=== PATIENT | female | born 1990 | race Caucasian/White ===

== ENCOUNTER 2017-03-07 15:23 | Outpatient (CLI) | payer MEDICAID, OTHER ==
[2017-03-08] MEDS ORDERED: morphine SULFATE/PF (10 MG/10 ML) INJ (14:42)
[2017-03-08] MEDS ORDERED: PHENYLephrine (100 MCG/ML) 5ML SYG (14:42)
[2017-03-08] MEDS ORDERED: METOCLOPRAMIDE 10 MG INJ (14:42)
[2017-03-08] MEDS ORDERED: FENTAnyl 50 MCG/ML VIAL (14:42)
[2017-03-08] MEDS ORDERED: OXYTOCIN 10 UNIT INJ (14:42)
== END 2017-03-07 18:05 | disposition home or self-care (01) ==
LOC: OBT 15:23 → L-D 15:25 → OBT 18:05
DX: O36.63X0 Maternal care for excessive fetal growth, third trimester, not applicable or unspecified (principal); Z3A.40 40 weeks gestation of pregnancy
CPT/HCPCS: 76815; 76818

== ENCOUNTER 2017-03-08 10:16 | Inpatient (IN) | payer MEDICAID ==
[~2017-03-08 10:16] MED LIST: EPHEDrine SULFATE 50 MG/5 ML SYG; FENTAnyl 50 MCG/ML VIAL; OXYTOCIN 10 UNIT INJ; morphine SULFATE/PF (10 MG/10 ML) INJ
[2017-03-08] MEDS ORDERED: LACTATED RINGER'S 1,000 ML IV (11:11)
[2017-03-08 11:19] LABS: ADD MAN DIFF? NO
[2017-03-08 11:21] LABS: WHITE BLOOD COUNT 4.8 10^3/ul (4.8-10.8)
[2017-03-08 11:21] LABS: BASOPHILS % 0.2 % (0.0-2.0); EOSINOPHILS # 0.1 10^3/ul (0.0-0.5); EOSINOPHILS % 1.5 % (0.0-7.0); HEMATOCRIT 37.1 % (37.0-47.0); HEMOGLOBIN 12.1 g/dl (12.0-16.0); LYMPHOCYTES # 1.5 10^3/ul (0.8-2.9); LYMPHOCYTES % 31.2 % (15.0-51.0); MEAN CORPUSCULAR HGB CONC 32.6 g/dl (32.0-37.0); MEAN CORPUSCULAR VOLUME 95.1 fl (82.0-101.0); MEAN PLATELET VOLUME 12.1 fl (7.4-10.4); MONOCYTE # 0.5 10^3/ul (0.3-0.9); MONOCYTES % 11.3 % (0.0-11.0); NEUTROPHIL # 2.6 10^3/ul (1.6-7.5); NEUTROPHILS % 55.4 % (39.0-77.0); PLATELET COUNT 186 10^3/UL (140-415); RED CELL DISTRIBUTION WIDTH 13.2 % (11.5-14.5)
[2017-03-08] MEDS ORDERED: MISOPROSTOL 200 MCG TAB PR ×2 (11:30→18:30)
[2017-03-08] MEDS ORDERED: CEFAZOLIN 2 GM/50 ML (PMX) 50 ML IV ×2 (11:30→18:30)
[2017-03-08] MEDS ORDERED: CARBOPROST 250 MCG INJ IM ×2 (11:30→18:30)
[2017-03-08] MEDS ORDERED: METHYLERGONOVINE 0.2 MG INJ IM ×2 (11:30→18:30)
[2017-03-08 11:54] LABS: INR 0.82; PARTIAL THROMBOPLASTIN TIME 24.8 Sec (25.0-35.0); PROTIME 11.4 Sec (11.9-14.9); PT RATIO 0.9
[2017-03-08 12:48] LABS: HEPATITIS B SURFACE ANTIGEN NEGATIVE (NEGATIVE)
[2017-03-08] MEDS: CITRIC ACID/SODIUM CITRATE 15 ML CUP PO (14:08)
[2017-03-08] MEDS: ONDANSETRON 4 MG INJ IV ×2 (14:08→20:17)
[2017-03-08 15:30] LABS: RAPID PLASMA REAGIN NONREACTIVE (NR)
[2017-03-08] MEDS ORDERED: NALBUPHINE HCL (10 MG/1 ML) INJ IV (16:00)
[2017-03-08] MEDS ORDERED: morphine 2 MG INJ IV (16:00)
[2017-03-08] MEDS ORDERED: OXYCODONE/ACETAMINOPHEN (5/325) TAB PO ×2 (16:00)
[2017-03-08] MEDS ORDERED: HYDROmorphONE (0.2 MG/ML) 10ML SYG IV ×3 (16:00)
[2017-03-08] MEDS ORDERED: LABETALOL HCL 20MG INJ IV (16:00)
[2017-03-08] MEDS ORDERED: MEPERIDINE 25 MG INJ IV (16:00)
[2017-03-08] MEDS ORDERED: IPRATROPIUM (NEB) 0.5 MG/2.5 ML AMP HHN (16:00)
[2017-03-08] MEDS ORDERED: EPHEDrine SULFATE 50 MG/5 ML SYG IV (16:00)
[2017-03-08] MEDS ORDERED: NALOXONE (0.4 MG/ML) INJ IV (16:00)
[2017-03-08] MEDS ORDERED: ONDANSETRON 4 MG INJ IV (16:00)
[2017-03-08] MEDS ORDERED: FENTAnyl 50 MCG/ML VIAL IV ×3 (16:00)
[2017-03-08] MEDS ORDERED: ALBUTEROL 0.083% (NEB) 2.5 MG/3 ML AMP HHN (16:00)
[2017-03-08] MEDS ORDERED: TRIMETHOBENZAMIDE 100 MG/ML VIAL IM ×2 (16:00)
[2017-03-08] MEDS ORDERED: DIPHENHYDRAMINE 50 MG INJ IV ×2 (16:00)
[2017-03-08] MEDS ORDERED: hydrALAzine 20 MG INJ IV (16:00)
[2017-03-08] MEDS: OXYTOCIN 30 UNITS/LR 500 ML IV (16:07)
[2017-03-08] MEDS: LACTATED RINGER'S 1,000 ML IV ×2 (18:25→20:16)
[2017-03-08] MEDS ORDERED: HYDROCODONE/APAP (5/325) TAB PO (18:30)
[2017-03-08] MEDS ORDERED: NA PHOSPHATE/BIPHOS 133 ML ENEMA PR (18:30)
[2017-03-08] MEDS ORDERED: OXYTOCIN 30 UNITS/LR 500 ML IV (18:30)
[2017-03-08] MEDS: KETOROLAC 30 MG INJ IV (18:40)
[2017-03-08] MEDS: morphine 4 MG/ML VIAL IV (20:34)
[2017-03-08] MEDS: SENNA/DOCUSATE NA (8.6MG/50MG) TAB PO (21:00)
[2017-03-08] MEDS: CEFAZOLIN 2 GM/50 ML (PMX) 50 ML IVPB (22:21)
[2017-03-09] MEDS: CLINDAMYCIN 300 MG CAP PO ×4 (01:08→18:03)
[2017-03-09] MEDS: LACTATED RINGER'S 1,000 ML IV ×2 (01:14→12:00)
[2017-03-09] MEDS: CEFAZOLIN 2 GM/50 ML (PMX) 50 ML IVPB ×2 (05:48→13:33)
[2017-03-09] MEDS: morphine 4 MG/ML VIAL IV (05:54)
[2017-03-09 08:22] LABS: ADD MAN DIFF? NO
[2017-03-09] MEDS: KETOROLAC 30 MG INJ IV (08:29)
[2017-03-09] MEDS: SENNA/DOCUSATE NA (8.6MG/50MG) TAB PO ×2 (08:29→21:02)
[2017-03-09 08:31] LABS: WHITE BLOOD COUNT 8.9 10^3/ul (4.8-10.8)
[2017-03-09 08:31] LABS: BASOPHILS % 0.1 % (0.0-2.0); EOSINOPHILS % 0.3 % (0.0-7.0); HEMATOCRIT 27.7 % (37.0-47.0); HEMOGLOBIN 9.3 g/dl (12.0-16.0); LYMPHOCYTES # 1.1 10^3/ul (0.8-2.9); LYMPHOCYTES % 12.7 % (15.0-51.0); MEAN CORPUSCULAR HGB CONC 33.6 g/dl (32.0-37.0); MEAN CORPUSCULAR VOLUME 92.3 fl (82.0-101.0); MEAN PLATELET VOLUME 11.9 fl (7.4-10.4); MONOCYTE # 0.9 10^3/ul (0.3-0.9); MONOCYTES % 9.9 % (0.0-11.0); NEUTROPHIL # 6.8 10^3/ul (1.6-7.5); NEUTROPHILS % 76.4 % (39.0-77.0); PLATELET COUNT 147 10^3/UL (140-415); RED CELL DISTRIBUTION WIDTH 13.1 % (11.5-14.5)
[2017-03-09] MEDS: BISACODYL 10 MG SUPP PR (10:00)
[2017-03-09] MEDS: IBUPROFEN 800 MG TAB PO ×2 (14:00→21:47)
[2017-03-09] MEDS: OXYCODONE/ACETAMINOPHEN (5/325) TAB PO ×2 (14:48→21:02)
[2017-03-10] MEDS: CLINDAMYCIN 300 MG CAP PO ×5 (01:03→23:22)
[2017-03-10] MEDS: OXYCODONE/ACETAMINOPHEN (5/325) TAB PO ×5 (01:04→23:25)
[2017-03-10] MEDS: LACTATED RINGER'S 1,000 ML IV ×3 (02:25→18:25)
[2017-03-10] MEDS: IBUPROFEN 800 MG TAB PO ×3 (05:41→21:37)
[2017-03-10] MEDS: SENNA/DOCUSATE NA (8.6MG/50MG) TAB PO ×2 (08:47→20:49)
[2017-03-10] MEDS: LANOLIN 7 GM TUBE TOP (12:07)
[2017-03-11] MEDS: IBUPROFEN 800 MG TAB PO ×2 (05:29→12:20)
[2017-03-11] MEDS: CLINDAMYCIN 300 MG CAP PO ×2 (05:29→12:12)
[2017-03-11] MEDS: OXYCODONE/ACETAMINOPHEN (5/325) TAB PO (06:22)
[2017-03-11] MEDS: MEASLES,MUMPS,RUBELLA VACCINE INJ SC* (07:17)
[2017-03-11] MEDS: DIPHTH/TET/ACEL PERTUSS (ADULT) 0.5 ML VIAL IM* (07:17)
[2017-03-11] MEDS: SENNA/DOCUSATE NA (8.6MG/50MG) TAB PO (09:06)
== END 2017-03-11 14:10 | disposition home or self-care (01) | DRG 766 ==
LOC: L-D 10:16 → PP1 18:23
PROVIDERS: Obstetrics & Gynecology
PROC: 10D00Z1 Extraction of Products of Conception, Low, Open Approach (ICD-10-PCS; principal; 2017-03-08 14:00)
DX: O82 Encounter for cesarean delivery without indication (principal); Z37.0 Single live birth; Z3A.40 40 weeks gestation of pregnancy
CPT/HCPCS: 85025; 85610; 85730; 86592; 86850; 86900; 86901; 87340; 90715; 99464

== ENCOUNTER 2018-08-02 18:52 | Emergency (ER) | payer OTHER ==
[2018-08-02] MEDS: KETOROLAC 30 MG INJ IM (19:55)
[2018-08-02 20:00] LABS: ADD UMIC YES; UR ASCORBIC ACID 40 mg/dL (NEGATIVE); UR BILIRUBIN (Dip) NEGATIVE (NEGATIVE); UR BLOOD (Dip) 2+ mg/dL (NEGATIVE); UR CLARITY CLEAR (CLEAR); UR COLOR YELLOW (YELLOW); UR GLUCOSE (Dip) NEGATIVE (NEGATIVE); UR KETONES (Dip) NEGATIVE (NEGATIVE); UR LEUKOCYTE ESTERASE (Dip) NEGATIVE Leu/ul (NEGATIVE); UR NITRITE (Dip) NEGATIVE (NEGATIVE); UR RBC 0 /HPF (0-5); UR SPECIFIC GRAVITY (Dip) 1.018 (1.003-1.030); UR SQUAMOUS EPITHELIAL CELL FEW /HPF (FEW); UR TOTAL PROTEIN (Dip) NEGATIVE (NEGATIVE); UR UROBILINOGEN (Dip) NEGATIVE (NEGATIVE); UR WBC 1 /HPF (0-5)
== END 2018-08-02 20:51 | disposition home or self-care (01) ==
LOC: FTE 18:52
DX: S29.012A Strain of muscle and tendon of back wall of thorax, initial encounter (principal); X58.XXXA Exposure to other specified factors, initial encounter; Y92.89 Other specified places as the place of occurrence of the external cause
CPT/HCPCS: 81001; 81025; 96372; 99284-25